=== PATIENT | female | born 1980 | race Caucasian/White ===

== ENCOUNTER 2016-12-25 09:33 | Emergency (ER) | payer MEDICAID ==
[2016-12-25] MEDS ORDERED: Azithromycin 250 MG Tab ONE (09:45)
[2016-12-25] MEDS ORDERED: Albuterol 0.083% 2.5 MG/3 ML Neb Soln ONE (09:45)
[2016-12-25] MEDS ORDERED: Albuterol 0.021% 0.63 MG/3 ML Neb Soln ONE (10:31)
--- NOTE | 2016-12-25 10:32 | EDM.PDOC ---
ED HPI GENERAL MEDICAL PROBLEM - General Chief Complaint: Fever Stated Complaint: CHEST CONGESTION Time Seen by Provider: 12/25/16 10:00 Source of Information: Reports: Patient History Limitations: Reports: No Limitations - History of Present Illness INITIAL COMMENTS - FREE TEXT/NARRATIVE: According to patient she has been running low grad fever with chills since last . fever has been upto 101F, asso with cough. Cough is present all day and night. She does have Allergic asthma and is on symbicort and albuterol nebs. She claims this morning she had fever and wheezing, not getting better. hence here to be seen. No nausea or vomiting. No shortness of breath or dyspnea. Mild nasal itching and congestion. No chest pain. Onset Date: 12/22/16 Duration: Getting Worse Severity: Moderate Improves with: Reports: None Worsens with: Reports: None Associated Symptoms: Reports: Cough, Fever/Chills. 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 Denies: Weakness, Night Sweats HEENT: Reports: Rhinitis. Denies: Ear Pain, Throat Pain, Throat Swelling Respiratory: Reports: Wheezing, Cough, Sputum. Denies: Shortness of Breath, Pleuritic Chest Pain Cardiovascular: Denies: Chest Pain, Lightheadedness GI/Abdominal: Denies: Abdominal Pain, Nausea, Vomiting : Denies: Dysuria, Flank Pain Musculoskeletal: Denies: Joint Pain, Joint Swelling Skin: Denies: Pruritis, Rash ED EXAM, GENERAL - Physical Exam Exam: See Below Exam Limited By: No Limitations General Appearance: Alert, WD/WN, No Apparent Distress Eye Exam: Bilateral Eye: EOMI, PERRL Ears: Normal External Exam, Normal Canal, Hearing Grossly Normal, Normal TMs Ear Exam: Bilateral Ear: Auricle Normal, Canal Normal, TM normal Nose: Normal Inspection, Normal Mucosa, No Blood, Nasal Drainage (clear mucoid) Throat/Mouth: Normal Inspection, Normal Lips, Normal Teeth, Normal Gums, Normal Oropharynx, Normal Voice, No Airway Compromise Head: Atraumatic, Normocephalic Neck: Normal Inspection, Supple, Non-Tender, Full Range of Motion Respiratory/Chest: No Respiratory Distress, Normal Breath Sounds, No Accessory Muscle Use, Chest Non-Tender, Rhonchi (few expiratory rhonchi in the base) Cardiovascular: Normal Peripheral Pulses, Regular Rate, Rhythm, No Edema, No Gallop, No JVD, No Murmur, No Rub Extremities: Normal Inspection, Normal Range of Motion, Non-Tender, Normal Capillary Refill, No Pedal Edema Neurological: Alert, Oriented Course - Vital Signs Text/Narrative:: CBC shows white count of 7.6. Chest xray is normal. Pt's lungs are clear to auscultation other than few rhonchi. Her SPO2 on RA is 95%. Presently afebrile. Pt reassured that she has developed allergic bronchitis. Advised to continue of symbicort and albuterol nebs as needed. I have empirically started her on Z- YAA. advised deep breathing exercise and avoid outdoor activity when there is high pollen count or windy. Followup in clinic next week for recheck. - Orders/Labs/Meds Orders: Active Orders 24 hr Category Date Time Status Chest 2V [CR] Stat Exams 12/25/16 10:20 Ordered Labs: Laboratory Tests 12/25/16 Range/Units 10:09 WBC 8.4 (4.0-11.0) K/uL RBC 5.60 (3.80-5.80) M/uL Hgb 16.0 (11.5-16.5) g/dL Hct 46.0 (37.0-47.0) % MCV 82 (76-96) fL MCH 28.6 (27.0-32.0) pg MCHC 34.8 (31.0-35.0) g/dL RDW 13.8 (11.0-16.0) % Plt Count 236 (150-500) K/uL MPV 10.3 H (6.0-10.0) fL Neut % (Auto) 73.7 H (45.0-70.0) % Lymph % (Auto) 14.1 L (20.0-40.0) % [place] % (Auto) 10.1 H (3.0-10.0) % Eos % (Auto) 1.5 (1.0-5.0) % Baso % (Auto) 0.6 H (0.0-0.5) % Neut # (Auto) 6.22 (2.00-7.50) K/uL Lymph # (Auto) 1.19 L (1.50-4.00) K/uL [place] # (Auto) 0.85 H (0.20-0.80) K/uL Eos # (Auto) 0.13 (0.04-0.40) K/uL Baso # (Auto) 0.05 (0.02-0.10) K/uL Departure - Departure Time of Disposition: 10:30 Disposition: Home, Self-Care 01 Condition: good Clinical Impression: Allergic bronchitis - Discharge Information Forms: ED Department Discharge - Problem List & Annotations (1) Allergic bronchitis SNOMED Code(s): 585858016 Code(s): J45.909 - UNSPECIFIED ASTHMA, UNCOMPLICATED Status: Acute Current Visit: Yes - Problem List Review Problem List Initiated/Reviewed/Updated: Yes - My Orders Last 24 Hours: My Active Orders 12/25/16 10:20 Chest 2V [CR] Stat - Assessment/Plan Last 24 Hours: My Active Orders 12/25/16 10:20 Chest 2V [CR] Stat Assessment:: Allergic bronchitis Plan: CBC shows white count of 7.6. Chest xray is normal. Pt's lungs are clear to auscultation other than few rhonchi. Her SPO2 on RA is 95%. Presently afebrile. Pt reassured that she has developed allergic bronchitis. Advised to continue of symbicort and albuterol nebs as needed. I have empirically started her on Z- YAA. advised deep breathing exercise and avoid outdoor activity when there is high pollen count or windy. Followup in clinic next week for recheck.
[2016-12-25 11:09] VITALS: BP 122/70
--- NOTE | 2016-12-26 09:00 | CR ---
DATE OF SERVICE: 12/25/16 CLINICAL DATA: fever, cough PA AND LATERAL CHEST: No priors. The heart size is normal. There is a poorly defined infiltrate with consolidation in the right upper lobe. There is also mass effect soft tissue fullness in the right hilum and suprahilar region most likely representing adenopathy. The lungs are otherwise clear. No pneumothorax. No pleural effusions. IMPRESSION: Abnormal exam. See above. An infectious process is suspected. Atypical infectious process, TB, and fundal infection should also be considered. A malignancy is also included in the differential. Followup PA and lateral chest is recommended. If the findings persist, a chest CT will be necessary. [id number] [facility]
== END 2016-12-25 10:46 | disposition home or self-care (01) ==
LOC: LB.ED 09:33
DX: J45.909 Unspecified asthma, uncomplicated (principal); Z88.8 Allergy status to other drugs, medicaments and biological substances; Z79.899 Other long term (current) drug therapy; Z87.891 Personal history of nicotine dependence
CPT/HCPCS: 36415; 71020; 85025; 99283; A9270

== ENCOUNTER 2017-01-02 23:57 | Emergency (ER) | payer MEDICAID ==
[2017-01-03] MEDS ORDERED: Amoxicillin/Clavulanate K 875-125 MG Tab ONE (00:10)
[2017-01-03] MEDS ORDERED: predniSONE 10 MG Tab ONE (00:10)
[2017-01-03] MEDS ORDERED: methylPREDNISolone Sodium Succinate 125 MG/2 ML SDV ONE (00:10)
--- NOTE | 2017-01-05 17:09 | EDM.PDOC ---
ED HPI GENERAL MEDICAL PROBLEM - General Chief Complaint: Asthma Stated Complaint: bronchitits Time Seen by Provider: 01/03/17 00:00 Source of Information: Reports: Patient History Limitations: Reports: No Limitations - History of Present Illness INITIAL COMMENTS - FREE TEXT/NARRATIVE: This is a 36yo F in no acute distress with complaints of sob. Patient was seen and treated with azithromycin but did not receive any steroids. She has been treated with steroids in the past. 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 Right Chest Pain Score (Numeric/FACES): 2 - Related Data Allergies Allergy/AdvReac Type Severity Reaction Status Date / Time aspirin Allergy Vomiting Verified 01/03/17 00:17 Home Meds: Home Meds Albuterol [Ventolin HFA] 1 inh INH ASDIRECTED PRN 04/27/15 [History] Albuterol [Ventolin 2 MG/5 ML] 0.4 mg PO Q4HR PRN 01/03/17 [History] Budesonide/Formoterol [Symbicort 160-4.5 MCG] 1 puff INH BID 01/03/17 [History] Venlafaxine HCl [Venlafaxine HCl ER] 75 mg PO DAILY 01/03/17 [History] Past Medical History Cardiovascular History: Reports: None Respiratory History: Reports: Asthma, Bronchitis, Recurrent, 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: Psychiatric History: Reports: Anxiety, Depression - Infectious Disease History Infectious Disease History: Reports: Chicken Pox, Influenza - Past Surgical History Respiratory Surgical History: Reports: None Female Surgical History: Reports: Section, Lithotripsy/ESWL Social & Family History - Family History Family Medical History: Noncontributory - Tobacco Use Smoking Status *Q: Former Smoker Second Hand Smoke Exposure: Yes - Recreational Drug Use Recreational Drug Use: No - Living Situation & Occupation Living situation: Reports: ED ROS GENERAL - Review of Systems Review Of Systems: ROS reveals no pertinent complaints other than HPI. ED EXAM, GENERAL - Physical Exam Exam: See Below Exam Limited By: No Limitations General Appearance: Alert, WD/WN, Mild Distress Eye Exam: Bilateral Eye: EOMI, PERRL Ears: Normal External Exam Nose: Normal Inspection Throat/Mouth: Normal Inspection Head: Atraumatic, Normocephalic Neck: Normal Inspection Respiratory/Chest: No Respiratory Distress, Wheezing Cardiovascular: Normal Peripheral Pulses, Regular Rate, Rhythm GI/Abdominal: Normal Bowel Sounds Neurological: Alert, Oriented Psychiatric: Normal Affect, Normal Mood Course - Orders/Labs/Meds Meds: Medications Discontinued Medications Generic Name Dose Route Start Last Admin Trade Name Luz Marina PRN Reason Stop Dose Admin Amoxicillin/Clavulanate Potassium 20 tab 01/03/17 00:10 Augmentin 875 Mg/125 Mg .ROUTE 01/03/17 00:11 .STK-MED ONE Methylprednisolone Sodium Succinate 125 mg 01/03/17 00:10 Solu-Medrol .ROUTE 01/03/17 00:11 .STK-MED ONE Prednisone 150 mg 01/03/17 00:10 Prednisone .ROUTE 01/03/17 00:11 .STK-MED ONE Departure - Departure Time of Disposition: 00:50 Disposition: Home, Self-Care 01 Condition: Good Clinical Impression: Asthma exacerbation - Discharge Information Instructions: Allergies, [id number], Antibiotic Medicine, Acute Bronchitis Referrals: PCP,None [Primary Care Provider] - Forms: ED Department Discharge - Problem List & Annotations (1) Asthma exacerbation SNOMED Code(s): 822156726 Code(s): J45.901 - UNSPECIFIED ASTHMA WITH (ACUTE) EXACERBATION Status: Acute Onset Date: 09/22/15 Annotation/Comment:: Offered solumedrol shot and declined. Started on prednisone 60 mg po and will do this for 5 days and then taper for 5 days by 10 mg. She will follow up with her provider if not improving. To take the prednisone with food. - Problem List Review Problem List Initiated/Reviewed/Updated: Yes - Assessment/Plan Plan: Patient counseled on use of nebulizers and inhaled corticosteroids with LABA. Patient placed on a prednisone taper and given IM solumedrol and f/u with PCP in 2-3 days or sooner as needed. Patient counseled on f/u in ER if symptoms progress and worsen. F/u as directed.
== END 2017-01-03 00:42 | disposition home or self-care (01) ==
LOC: LB.ED 23:57
DX: J45.901 Unspecified asthma with (acute) exacerbation (principal); F41.9 Anxiety disorder, unspecified; F32.9 Major depressive disorder, single episode, unspecified; Z87.891 Personal history of nicotine dependence; Z88.6 Allergy status to analgesic agent; Z79.899 Other long term (current) drug therapy
CPT/HCPCS: 99284; A9270; J2930

== ENCOUNTER 2017-04-26 20:05 | Emergency (ER) | payer MEDICAID ==
[2017-04-26 20:22] VITALS: BP 152/87
[2017-04-26] MEDS ORDERED: Albuterol/Ipratropium 3.0-0.5 MG/3 ML Neb Soln NEB PRN (20:23)
[2017-04-26] MEDS ORDERED: Levofloxacin 750 MG Tab ONE (20:30)
[2017-04-26] MEDS ORDERED: Albuterol/Ipratropium 3.0-0.5 MG/3 ML Neb Soln ONE (20:30)
[2017-04-26] MEDS ORDERED: predniSONE 10 MG Tab ONE (20:30)
--- NOTE | 2017-04-27 09:07 | EDM.PDOC ---
ED HPI GENERAL MEDICAL PROBLEM - General Chief Complaint: Respiratory Problem Stated Complaint: asthma Time Seen by Provider: 04/26/17 20:20 Source of Information: Reports: Patient History Limitations: Reports: No Limitations - History of Present Illness INITIAL COMMENTS - FREE TEXT/NARRATIVE: This is a 37yo F who has been having some chest congestion and cough for the past week and worsening. She has a history of asthma and has been using her inhalers and nebulizers with initial improvement and recently the past 2-3 days things have gotten worse. Patient denies and chest pain but states she does feel sob. Denies other health issues or complaints today. 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) - Related Data Allergies Allergy/AdvReac Type Severity Reaction Status Date / Time aspirin Allergy Vomiting Verified 01/03/17 00:17 Home Meds: Home Meds Albuterol [Ventolin HFA] 1 inh INH ASDIRECTED PRN 04/27/15 [History] Albuterol [Ventolin 2 MG/5 ML] 0.4 mg PO Q4HR PRN 01/03/17 [History] Budesonide/Formoterol [Symbicort 160-4.5 MCG] 1 puff INH BID 01/03/17 [History] Venlafaxine HCl [Venlafaxine HCl ER] 75 mg PO DAILY 01/03/17 [History] Past Medical History Cardiovascular History: Reports: None Respiratory History: Reports: Asthma, Bronchitis, Recurrent, 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: Psychiatric History: Reports: Anxiety, Depression - Infectious Disease History Infectious Disease History: Reports: Chicken Pox, Influenza - Past Surgical History Respiratory Surgical History: Reports: None Female Surgical History: Reports: Section, Lithotripsy/ESWL Social & Family History - Family History Family Medical History: Noncontributory - Tobacco Use Smoking Status *Q: Former Smoker Second Hand Smoke Exposure: Yes - Recreational Drug Use Recreational Drug Use: No - Living Situation & Occupation Living situation: Reports: ED ROS GENERAL - Review of Systems Review Of Systems: ROS reveals no pertinent complaints other than HPI. ED EXAM, GENERAL - Physical Exam Exam: See Below Exam Limited By: No Limitations General Appearance: Alert, WD/WN, No Apparent Distress Eye Exam: Bilateral Eye: EOMI, PERRL Ears: Normal External Exam Nose: Normal Inspection Throat/Mouth: Normal Inspection Head: Atraumatic, Normocephalic Neck: Normal Inspection Respiratory/Chest: Decreased Breath Sounds, Wheezing Cardiovascular: Normal Peripheral Pulses Peripheral Pulses: 2+: Dorsalis Pedis (L), Dorsalis Pedis (R) GI/Abdominal: Normal Bowel Sounds (Female) Exam: Normal External Exam Extremities: Normal Inspection Neurological: Alert, Oriented, CN II-XII Intact Psychiatric: Normal Affect, Normal Mood Skin Exam: Warm, Dry, Intact Course - Vital Signs Last Recorded V/S: Last Vital Signs Temp 37.0 C 04/26/17 20:15 Pulse 110 H 04/26/17 20:15 Resp 20 04/26/17 20:15 BP 152/87 H 04/26/17 20:15 Pulse Ox 99 04/26/17 20:15 - Orders/Labs/Meds Meds: Medications Discontinued Medications Generic Name Dose Route Start Last Admin Trade Name Freq PRN Reason Stop Dose Admin Albuterol/Ipratropium 3 ml 04/26/17 20:23 04/26/17 20:15 Duoneb 3.0-0.5 Mg/3 Ml NEB 3 ml Q2H PRN Administration Wheezing Albuterol/Ipratropium 18 ml 04/26/17 20:30 Duoneb 3.0-0.5 Mg/3 Ml .ROUTE 04/26/17 20:31 .STK-MED ONE Levofloxacin 750 mg 04/26/17 20:30 Levaquin .ROUTE 04/26/17 20:31 .STK-MED ONE Prednisone 150 mg 04/26/17 20:30 Prednisone .ROUTE 04/26/17 20:31 .STK-MED ONE Departure - Departure Time of Disposition: 21:30 Disposition: Home, Self-Care 01 Condition: Good Clinical Impression: Cough, Chest congestion Asthma exacerbation Qualifiers: Asthma severity: moderate Asthma persistence: persistent Qualified Code(s): J45.41 - Moderate persistent asthma with (acute) exacerbation - Discharge Information Instructions: Community-Acquired Pneumonia, Adult Referrals: PCP,None [Primary Care Provider] - Forms: ED Department Discharge Additional Instructions: Follow up in about 3-4 days if you are not feeling any better, if the symptoms are still lingering after 1 week, follow up in the clinic. the the medication as prescribed on the bottle. If you have any questions call [phone] clinic or the hospital [phone]. Counseled on prednisone taper, antibiotics use and side effects and close monitoring and f/u as directed and as needed if symptoms worsen or persist.
== END 2017-04-26 20:40 | disposition home or self-care (01) ==
LOC: LB.ED 20:05
DX: J45.41 Moderate persistent asthma with (acute) exacerbation (principal); Z79.899 Other long term (current) drug therapy; Z87.891 Personal history of nicotine dependence
CPT/HCPCS: 99283; A9270; J7620

== ENCOUNTER 2017-06-09 19:43 | Emergency (ER) | payer MEDICAID ==
[2017-06-09] MEDS ORDERED: Ketorolac 30 MG/ML SDV IM ONE (20:47)
[2017-06-09] MEDS ORDERED: Ketorolac 30 MG/ML SDV ONE (20:52)
--- NOTE | 2017-06-09 20:53 | EDM.PDOC ---
ED HPI GENERAL MEDICAL PROBLEM - General Chief Complaint: General Stated Complaint: possible kidney stone Time Seen by Provider: 06/09/17 20:15 Source of Information: Reports: Patient History Limitations: Reports: No Limitations - History of Present Illness INITIAL COMMENTS - FREE TEXT/NARRATIVE: According to patient , she claims she has had pain in the right midback since yesterday. the pain initially was sharp and was causing numbness in the midback and soon it started to move into her right lateral aspect of the abdomen. Did have some nausea yesterday. No vomiting. rates her pain at 8/10. No fever or chills. No dysuria. No hematuria. Pt has had 2 previous episodes of renal stone where she had lithotripsy 13 years ago. And she passed her ssecond stone 6 years ago. Onset Date: 06/08/17 Location: Reports: Back Quality: Reports: Ache Severity: Moderate Improves with: Reports: None Worsens with: Reports: None Associated Symptoms: Reports: Nausea/Vomiting. Denies: Confusion, Chest Pain, Cough, Fever/Chills, Headaches, Rash, Seizure, Shortness of Breath, Syncope, Weakness - Related Data Allergies Allergy/AdvReac Type Severity Reaction Status Date / Time aspirin Allergy Vomiting Verified 06/09/17 20:40 Home Meds: Home Meds Albuterol [Ventolin HFA] 1 inh INH ASDIRECTED PRN 04/27/15 [History] Albuterol [Ventolin 2 MG/5 ML] 0.4 mg PO Q4HR PRN 01/03/17 [History] Budesonide/Formoterol [Symbicort 160-4.5 MCG] 1 puff INH BID 01/03/17 [History] Venlafaxine HCl [Venlafaxine HCl ER] 75 mg PO DAILY 01/03/17 [History] Past Medical History Cardiovascular History: Reports: None Respiratory History: Reports: Asthma, Bronchitis, 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, 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: Psychiatric History: Reports: Anxiety, Depression - Infectious Disease History Infectious Disease History: Reports: Chicken Pox, Influenza - Past Surgical History Respiratory Surgical History: Reports: None Female Surgical History: Reports: Section, Lithotripsy/ESWL Social & Family History - Family History Family Medical History: Noncontributory - Tobacco Use Smoking Status *Q: Former Smoker Second Hand Smoke Exposure: Yes - Recreational Drug Use Recreational Drug Use: No - Living Situation & Occupation Living situation: Reports: ED ROS GENERAL - Review of Systems Review Of Systems: See Below Constitutional: Denies: Fever, Chills, Malaise HEENT: Denies: Rhinitis, Sinus Problem, Throat Pain, Throat Swelling Respiratory: Denies: Shortness of Breath, Wheezing, Cough, Sputum Cardiovascular: Denies: Chest Pain, Lightheadedness GI/Abdominal: Reports: Nausea. Denies: Abdominal Pain, Vomiting : Reports: Flank Pain, Frequency. Denies: Dysuria, Hematuria Musculoskeletal: Denies: Joint Pain, Joint Swelling Skin: Denies: Bruising, Pruritis, Rash, Erythema Neurological: Denies: Dizziness, Headache, Seizure, Syncope Psychiatric: Denies: Agitation, Anxiety ED EXAM, GENERAL - Physical Exam Exam: See Below Exam Limited By: No Limitations General Appearance: Alert, WD/WN, Mild Distress Eye Exam: Bilateral Eye: EOMI, PERRL Ears: Normal External Exam, Normal Canal, Hearing Grossly Normal, Normal TMs Ear Exam: Bilateral Ear: Auricle Normal, Canal Normal, TM normal Nose: Normal Inspection, Normal Mucosa, No Blood Throat/Mouth: Normal Inspection, Normal Lips, Normal Teeth, Normal Gums, Normal Oropharynx, Normal Voice, No Airway Compromise Head: Atraumatic, Normocephalic Neck: Normal Inspection, Supple, Non-Tender, Full Range of Motion Respiratory/Chest: No Respiratory Distress, Lungs Clear, Normal Breath Sounds, No Accessory Muscle Use, Chest Non-Tender Cardiovascular: Normal Peripheral Pulses, Regular Rate, Rhythm, No Edema, No Gallop, No JVD, No Murmur, No Rub GI/Abdominal: Normal Bowel Sounds, Soft, Non-Tender, No Organomegaly, No Distention, No Abnormal Bruit, No Mass Back Exam: Normal Inspection, Full Range of Motion, CVA Tenderness (R) Course - Vital Signs Text/Narrative:: CBC is normal. BMP is normal. Her UA shows moderate blood and 20-30 RBCs. It does appear like she has a passing stone. She did receive toradol 30mg IM and also flomax 0.4mg oral in the emergency room. Her pain has improved from 8/10 to 3/10. Reassured patient that the stone might be moving. Advised to strain her urine for stone. Alternate toradol 10mg with Tylenol 650mg every 4 hrs. plenty of fluids and flomax 0.4mg daily. If her symptoms worsen or she has severe nausea and vomiting. fever chills. need to return to emergency room [facility]. Last Recorded V/S: Last Vital Signs Temp 98.3 F 06/09/17 20:55 Pulse 118 H 06/09/17 20:55 Resp 12 06/09/17 20:55 BP 143/82 H 06/09/17 20:55 Pulse Ox 100 06/09/17 20:55 - Orders/Labs/Meds Labs: Laboratory Tests 06/09/17 06/09/17 06/09/17 Range/Units 20:59 20:59 20:59 WBC 10.9 D (4.0-11.0) K/uL RBC 5.20 (3.80-5.80) M/uL Hgb 14.8 (11.5-16.5) g/dL Hct 43.7 (37.0-47.0) % MCV 84 (76-96) fL MCH 28.5 (27.0-32.0) pg MCHC 33.9 (31.0-35.0) g/dL RDW 13.8 (11.0-16.0) % Plt Count 297 D (150-500) K/uL MPV 10.3 H (6.0-10.0) fL Neut % (Auto) 61.7 (45.0-70.0) % Lymph % (Auto) 26.1 (20.0-40.0) % [place] % (Auto) 9.0 (3.0-10.0) % Eos % (Auto) 2.2 (1.0-5.0) % Baso % (Auto) 1.0 H (0.0-0.5) % Neut # (Auto) 6.71 (2.00-7.50) K/uL Lymph # (Auto) 2.84 (1.50-4.00) K/uL [place] # (Auto) 0.98 H (0.20-0.80) K/uL Eos # (Auto) 0.24 (0.04-0.40) K/uL Baso # (Auto) 0.11 H (0.02-0.10) K/uL Sodium 141 (136-145) mmol/L Potassium 4.2 (3.5-5.1) mmol/L Chloride 106 (98-107) mmol/L Carbon Dioxide 26.7 (21.0-32.0) mmol/L Anion Gap 12.5 (5.0-15.0) mmol/L BUN 13 (8-26) mg/dL Creatinine 0.88 (0.55-1.02) mg/dL Est Cr Clr Drug Dosing 86.58 mL/min Estimated GFR (MDRD) > 60 (>60) MLS/MIN BUN/Creatinine Ratio 14.8 (6-25) Glucose 90 (74-100) mg/dL Calcium 9.5 (8.5-10.1) mg/dL Urine Color Yellow Urine Appearance Clear (CLEAR) Urine pH 7.0 (5.0-8.0) Ur Specific [place] 1.020 (1.003-1.030) Urine Protein Negative (NEGATIVE) mg/dL Urine Glucose (UA) Negative (NEGATIVE) mg/dL Urine Ketones Negative (NEGATIVE) mg/dL Urine Occult Blood Moderate H (NEGATIVE) Urine Nitrite Negative (NEGATIVE) Urine Bilirubin Negative (NEGATIVE) Urine Urobilinogen 0.2 (0.2-1.0) E.U./dL Ur Leukocyte Esterase Negative (NEGATIVE) Urine RBC 20-30 H /HPF Urine WBC 0-5 H /HPF Ur Squamous Epith Cells Few /HPF Urine Bacteria Few /HPF Meds: Medications Discontinued Medications Generic Name Dose Route Start Last Admin Trade Name Freq PRN Reason Stop Dose Admin Ketorolac Tromethamine Confirm 06/09/17 20:52 06/09/17 20:54 Toradol Administered 06/09/17 20:53 30 mg Dose Administration 30 mg .ROUTE .STK-MED ONE Ketorolac Tromethamine 30 mg 06/09/17 20:47 Toradol IM 06/09/17 20:48 ONETIME ONE Departure - Departure Time of Disposition: 21:30 Disposition: Home, Self-Care 01 Condition: Fair Clinical Impression: Left ureteral stone - Discharge Information Instructions: Kidney Stones Referrals: PCP,None [Primary Care Provider] - Forms: ED Department Discharge Additional Instructions: Reassured patient that the stone might be moving. Advised to strain her urine for stone. Alternate toradol 10mg with Tylenol 650mg every 4 hrs. plenty of fluids and flomax 0.4mg daily. If her symptoms worsen or she has severe nausea and vomiting. fever chills. need to return to emergency room [facility]. - Problem List & Annotations (1) Left ureteral stone SNOMED Code(s): 40458583 Code(s): N20.1 - CALCULUS OF URETER Status: Acute Current Visit: Yes - Problem List Review Problem List Initiated/Reviewed/Updated: Yes - Assessment/Plan Assessment:: Left ureteric colic Plan: CBC is normal. BMP is normal. Her UA shows moderate blood and 20-30 RBCs. It does appear like she has a passing stone. She did receive toradol 30mg IM and also flomax 0.4mg oral in the emergency room. Her pain has improved from 8/10 to 3/10. Reassured patient that the stone might be moving. Advised to strain her urine for stone. Alternate toradol 10mg with Tylenol 650mg every 4 hrs. plenty of fluids and flomax 0.4mg daily. If her symptoms worsen or she has severe nausea and vomiting. fever chills. need to return to emergency room [facility].
[2017-06-09 20:56] VITALS: BP 143/82
[2017-06-09] MEDS ORDERED: Ketorolac 10 MG Tab ONE ×2 (21:25→21:30)
[2017-06-09] MEDS ORDERED: Tamsulosin 0.4 MG Cap.ER ONE ×3 (21:26→21:30)
[2017-06-09] MEDS ORDERED: Tamsulosin 0.4 MG Cap.ER PO ONE (21:27)
== END 2017-06-09 21:35 | disposition home or self-care (01) ==
LOC: LB.ED 19:43
DX: N20.1 Calculus of ureter (principal); F41.9 Anxiety disorder, unspecified; F32.9 Major depressive disorder, single episode, unspecified; J45.909 Unspecified asthma, uncomplicated; Z87.891 Personal history of nicotine dependence; Z79.899 Other long term (current) drug therapy
CPT/HCPCS: 36415; 80048; 81001; 85025; 96372; 99284; A9270; J1885

== ENCOUNTER 2017-10-26 05:18 | Emergency (ER) | payer MEDICAID ==
[2017-10-26 05:55] VITALS: BP 137/72
[2017-10-26] MEDS ORDERED: Ketorolac 30 MG/ML SDV IVPUSH ONE (06:17)
[2017-10-26] MEDS ORDERED: Sodium Chloride 0.9% 1,000 ML IV ONE (06:17)
[2017-10-26] MEDS ORDERED: HYDROmorphone 2 MG/ML Syringe IVPUSH ONE (06:34)
[2017-10-26] MEDS ORDERED: HYDROmorphone 4 MG/ML Syringe ONE (06:41)
--- NOTE | 2017-10-26 13:35 | CT ---
DATE OF SERVICE: 10/26/2017 CLINICAL DATA: Flank pain. Hx of renal stones. UNENHANCED ABDOMEN AND PELVIC CT: Multislice acquisition through the abdomen and pelvis without IV or oral contrast was performed. No priors. The lung bases are clear. The unenhanced liver appears normal. No focal hepatic lesions. The gallbladder appears normal. The spleen, pancreas, and right and left adrenals appear normal. There is an 8 x 10 mm ureteral calculi located in the proximal right ureter. There is significant hydronephrosis proximal to it consistent with obstruction. There are small nonobstructing renal calculi bilaterally. No hydronephrosis or hydroureter on the left. There is a small amount of fluid within the bladder. It appears grossly normal. The appendix is not dilated. No evidence of appendicitis. There is mild diverticulosis of the descending and sigmoid colon. No evidence of diverticulitis. No free air. No free fluid. No dilated loops of bowel. No adenopathy. No aortic aneurysm. There is an umbilical hernia containing fat. IMPRESSION: 8 x 10 mm proximal right ureteral calculi with obstruction. Other findings as discussed above. [id number] MTDD
--- NOTE | 2017-10-31 10:44 | ER ---
DATE OF SERVICE: 10/26/2017 HISTORY OF PRESENT ILLNESS: A 37-year-old lady here with complaints of right flank pain that she has had for over a month. The patient states that she was seen in [place] 3 weeks ago. She was diagnosed with a kidney stone and given Percocet and Flomax. She states that it did not seem to help very much. She is out of her medications now and her pain has gotten worse. The pain radiates around the patient's flank on the right side. She has not noticed any blood when she voids and she denies any problems with fever. She has felt a little nauseated at times, but has not vomited. OBJECTIVE: GENERAL APPEARANCE: The patient is awake and alert. She is uncomfortable with pain. VITAL SIGNS: Reviewed. She is afebrile. Blood pressure 137/72, O2 sats are 99%, pulse is 80. CHEST: There is mild CVA tenderness with percussion on the right side. ABDOMEN: Soft. There is really no tenderness with palpation today. Bowel sounds are present, but hypoactive. SKIN: Warm and dry. LABORATORY DATA: Labs today include a CBC which is unremarkable. Metabolic panel is normal. Urine shows some occult hematuria and a few bacteria. CT of the abdomen shows an edematous right kidney, moderate hydronephrosis, and an 8 mm stone in the proximal ureter. DIAGNOSIS: Renal stone. TREATMENT PLAN: Toradol was given as well as Dilaudid. These were both given IV as well as a liter of fluid. This brought the patient's pain down to a comfortable level. At this time, I did consult with the urologist in [place] and arrangements will be made to have the patient transfer to [place] to have the stone removed. She was sent home with pain medication and the patient was comfortable when leaving our facility. CRS/MODL /[id number] CARLOS
== END 2017-10-26 07:52 | disposition home or self-care (01) ==
LOC: LB.ED 05:18
DX: N13.2 Hydronephrosis with renal and ureteral calculous obstruction (principal)
CPT/HCPCS: 36415; 74176; 80048; 81001; 85025; 96361; 96374; 96375; 99284-25; J1170; J1885; J7040

== ENCOUNTER 2021-09-28 01:23 | Emergency (ER) | payer MEDICAID ==
[2021-09-28] MEDS: Diphtheria,Pertussis(Acell),Tetanus Vaccine 0.5 ML SDV IM ONE (02:55)
[2021-09-28] MEDS ORDERED: Amoxicillin/Clavulanate K 875-125 MG Tab ONE (03:00)
[2021-09-28] MEDS ORDERED: Acetaminophen/HYDROcodone 325-5 MG Tab ONE (03:00)
[2021-09-28 05:55] VITALS: BP 142/72; PULSE 119
== END 2021-09-28 03:21 | disposition home or self-care (01) ==
LOC: LB.ED 01:23
DX: S01.85XA Open bite of other part of head, initial encounter (principal); Z88.8 Allergy status to other drugs, medicaments and biological substances; Z23 Encounter for immunization; W54.0XXA Bitten by dog, initial encounter
CPT/HCPCS: 12011; 90471; 90715; 99282-25; A9270-GY